=== PATIENT | male | born 1950 | race Caucasian/White ===

== ENCOUNTER → 2018-01-30 16:43 | Outpatient (CLI) | payer OTHER, SELFPAY ==
--- NOTE | 2018-01-30 | DI.RAD.S_ITS ---
PROCEDURE: XR LUMBAR SPINE 2-3V INDICATIONS: LOW BACK PAIN TECHNIQUE: 3 views of the lumbar spine were acquired. COMPARISON: [facility], , L-SPINE 2-3 VIEWS, 12/12/2006, 10:54. FINDINGS: Bones: 5 [id number] vertebrae are present. There is normal bony alignment. No vertebral body compression fractures. No suspicious bony lesions. Moderate degenerative osteoarthrosis present involving the discs along the lumbosacral spine most pronounced at L5-S1. Additionally, there is mild facet osteoarthritis except at L5-S1 where moderate such degeneration can be seen. Soft tissues: Overlying bowel gas pattern is normal. No suspicious soft tissue calcifications. IMPRESSION: The degenerative disc disease and facet osteoarthritis has worsened from the comparison study of December 2006 with worsening disc height reduction at L5-S1 and associated increased facet hyperostosis at that level. Spinal and foraminal stenosis likely is present as a result, no acute trauma. Dictated by: Roberto Carlos Naidu M.D. on 01/30/2018 at 17:13 Approved by: Roberto Carlos Naidu M.D. on 01/30/2018 at 17:15
== END ==
PROVIDERS: PCP Family Medicine; Visit Provider Family Medicine
DX: M51.36 Other intervertebral disc degeneration, lumbar region (principal); M47.816 Spondylosis without myelopathy or radiculopathy, lumbar region
CPT/HCPCS: 72100

== ENCOUNTER → 2018-02-22 08:36 | Outpatient (CLI) | payer OTHER, SELFPAY ==
--- NOTE | 2018-02-22 | DI.US.S_ITS ---
PROCEDURE: US RETROPERITONEAL COMP INDICATIONS: ABDOMINAL AORTIC ANEURYSM SCREENING TECHNIQUE: Real-time scanning was performed of the retroperitoneal organs, with image documentation. COMPARISON: None. FINDINGS: Aorta: Visualized aorta is normal in caliber at 3 cm or less. Iliac arteries: Proximal common iliac arteries are normal in caliber at 2.5 cm or less. IMPRESSION: No abdominal aortic or proximal common iliac artery aneurysm. Dictated by: Amor AVENDANO Interpreted: Maria M Ruiz MD on 02/22/2018 at 9:40 Approved by: Maria M Ruiz M.D. on 02/22/2018 at 10:30
== END ==
PROVIDERS: PCP Family Medicine; Visit Provider Family Medicine
DX: Z13.6 Encounter for screening for cardiovascular disorders (principal)
CPT/HCPCS: 76770

== ENCOUNTER → 2018-12-27 10:45 | Outpatient (CLI) | payer OTHER, SELFPAY | PROVIDERS: PCP Family Medicine; Visit Provider Family Medicine | DX: R20.0 Anesthesia of skin (principal) | CPT/HCPCS: 95885; 95886; 95911 ==

== ENCOUNTER → 2022-12-07 07:59 | Outpatient (CLI) | payer OTHER, SELFPAY ==
--- NOTE | 2022-12-07 | DI.ECHO.S_ITS ---
[facility] +---------+ : : [address] : [address] : : : : [id number] : : : : Phone: [phone]+ Echocardiogram Report + + :Name: JUSTINO SHELL Study Date: 12/07/2022 Height: 69 in : :[facility] ReadingLocation: Weight: 210 lb : : Gender: Male BSA: 2.1 m2 : :: 1950 Age: 72 yrs BP: 110/64 mmHg: :Reason For Study: ATRIAL FIBRILLATION : :Ordering Physician: EDIN, : :DONTRELL Performed By: Gilda Robbins : :Referring: DONTRELL JESUS : + + Interpretation Summary The ejection fraction is estimated to be 50-55%. Diastolic function could not be accurately assessed due to atrial fibrillation. The right ventricle is normal in size and function. There is moderate biatrial enlargement. There is moderate to severe mitral regurgitation. There is moderate tricuspid regurgitation. The right ventricular systolic pressure is estimated to be at least 29 mmHg based on an estimated right atrial pressure of 3 mm Hg. Procedure: A two-dimensional transthoracic echocardiogram with color flow and Doppler was performed. The study quality was technically adequate. There is no prior echocardiogram noted for this patient. The patient was in atrial fibrillation with heart rates between 85-125 bpm during the exam. Left Ventricle: The left ventricle is normal in size and wall thickness. The ejection fraction is estimated to be 50-55%. Diastolic function could not be accurately assessed due to atrial fibrillation. Right Ventricle: The right ventricle is normal in size and function. Atria: There is moderate biatrial enlargement. There is no Doppler evidence for an interatrial shunt. Mitral Valve: The mitral valve leaflets appear mildly thickened, but open well. There is moderate to severe mitral regurgitation. Aortic Valve: The aortic valve is trileaflet. The aortic valve opens well. The aortic valve is mildly calcified. There is no aortic valve stenosis. No aortic regurgitation is present. Tricuspid Valve: The tricuspid valve leaflets are thickened and/or calcified, but open well. There is moderate tricuspid regurgitation. The right ventricular systolic pressure is estimated to be at least 29 mmHg based on an estimated right atrial pressure of 3 mm Hg. Pulmonic Valve: The pulmonic valve leaflets are thin and pliable; valve motion is normal. There is trace pulmonic regurgitation. Great Vessels: The aortic root is normal size. The dimensions of the ascending aorta are normal. The IVC is of normal diameter and collapses greater than 50% with a sniff. This suggests a low right atrial pressure of 3 mm Hg. Pericardium/ Pleura There is no pericardial effusion. There is no pleural effusion. MMode/2D Measurements & Calculations LVIDd: 4.5 cm LVOT diam: 2.2 cm LVIDs: 3.1 cm Ao root diam: 3.2 cm FS: 30.1 % asc Aorta Diam: 2.9 cm IVSd: 0.89 cm Ao Arch Diam (Prox Trans): 2.6 cm LVPWd: 0.86 cm LV mooney. diameter/BSA (cm/m^2): 2.1 LV sys. diameter/BSA (cm/m^2): 1.5 LA A2 area: 28.8 cm2 RA long axis: 7.0 cm LA A4 area: 29.6 cm2 RA area: 26.6 cm2 LA length (vol): 7.3 cm RA vol: 85.8 ml LA vol: 99.1 ml RA : 40.7 ml/m2 LA vol index: 47.0 ml/m2 IVC diam: 1.8 cm RVD1 (basal): 3.9 cm RVD2 (mid): 2.8 cm TAPSE: 2.0 cm Doppler Measurements & Calculations Ao V2 max: 183.9 cm/sec LVOT Max Randy: 116.5 cm/sec Ao V2 mean: 126.5 cm/sec LV V1 max P.4 mmHg Ao max P.5 mmHg LV V1 VTI: 20.0 cm Ao mean P.2 mmHg MARIAH(I,D): 2.2 cm2 Ao V2 VTI: 33.0 cm MARIAH(V,D): 2.3 cm2 sev ratio: 0.61 MARIAH indexed to BSA (cm^2/m^2): 1.1 MV E max randy: 106.6 cm/sec TR max randy: 242.2 cm/sec MV A max randy: 2.1 cm/sec TR max P.5 mmHg MV E/A: 51.2 PA V2 max: 96.1 cm/sec Med Peak E' Randy: 9.8 cm/sec PA V2 mean: 72.3 cm/sec E/E' med: 10.9 PA mean P.3 mmHg Lat Peak E' Randy: 11.3 cm/sec PA pr(Accel): 48.2 mmHg E/E' lat: 9.4 E/e' average: 10.1 MV dec time: 0.17 sec MR ERO: 0.19 cm2 MR PISA: 2.3 cm2 SV(LVOT): 73.1 ml MR flow rate: 95.7 cm3/sec MR PISA radius: 0.61 cm Reading Physician:10:51 AM
== END ==
PROVIDERS: PCP Family Medicine; Referring Provider Family Medicine; Visit Provider Family Medicine
DX: I48.91 Unspecified atrial fibrillation (principal); R55 Syncope and collapse; R06.02 Shortness of breath; I08.1 Rheumatic disorders of both mitral and tricuspid valves
CPT/HCPCS: 93306

== ENCOUNTER → 2024-07-25 15:58 | Outpatient (CLI) | payer OTHER, SELFPAY ==
[2024-07-25 17:00] LABS: Add Manual Diff / Slide Review NO; Basophils Absolute Auto 100 /uL (0-100); Basophils Percent Auto 0.9 % (0-2); Eosinophils Absolute Auto 200 /uL (0-450); Eosinophils Percent Auto 2.6 % (2-4); Hematocrit 45.3 % (41-53); Hemoglobin 14.9 g/dL (13.5-17.5); Lymphocytes Absolute Auto 2000 /uL (1100-4500); Lymphocytes Percent Auto 26.8 % (25-40); Mean Corpuscular HGB Conc 32.9 % (30-36); Mean Corpuscular Hemoglobin 28.3 PG (26-34); Mean Corpuscular Volume 86.2 fL (80-100); Monocytes Absolute Auto 600 /uL (0-900); Monocytes Percent Auto 8.4 % (3-14); Neutrophils Absolute Auto 4600 /uL (1500-7000); Neutrophils Percent Auto 61.3 % (50-75); Platelet Count 186 X10^3/uL (150-400); Red Blood Cell Count 5.26 X10^6/uL (4.5-5.9); Red Cell Distribution Width 14.3 % (11.6-14.8); White Blood Cell Count 7.5 X10^3/uL (4.5-11.0)
[2024-07-25 17:01] LABS: Alanine Aminotransferase 32 IU/L (<50); Albumin 4.5 g/dL (3.5-5.0); Albumin Globulin Ratio 1.5 (1.0-2.8); Alkaline Phosphatase 99 U/L (38-126); Aspartate Aminotransferase 26 IU/L (17-59); BUN Creatinine Ratio 31.6 (6-22); Bilirubin Total 0.8 mg/dL (0.2-1.3); Blood Urea Nitrogen 24 mg/dL (9-20); Calcium 9.4 mg/dL (8.4-10.2); Carbon Dioxide 24 mmol/L (22-32); Chloride 105 mmol/L (98-107); Cholesterol 129 mg/dL (140-199); Estimated Glomerular Filt Rate > 60 mL/min (>60); Globulin 3.1 g/dL (1.7-4.1); Glucose 104 mg/dL (80-110); HDL Cholesterol 35 mg/dL (40-60); HEMOLYSIS < 15 (0-50); LDL Cholesterol Calculated 81 mg/dL (<100); Potassium 3.9 mmol/L (3.4-5.1); Sodium 139 mmol/L (137-145); Total Protein 7.6 g/dL (6.3-8.2); Triglycerides 65 mg/dL (35-150)
[2024-07-25 17:32] LABS: Prostate Specific Antigen 0.766 ng/mL (0.10-4.00)
== END ==
LOC: LAB 16:01
PROVIDERS: PCP Family Medicine; Referring Provider Family Medicine; Visit Provider Family Medicine
DX: I10 Essential (primary) hypertension (principal); I48.0 Paroxysmal atrial fibrillation; I34.0 Nonrheumatic mitral (valve) insufficiency; E78.2 Mixed hyperlipidemia; R73.9 Hyperglycemia, unspecified; N40.1 Benign prostatic hyperplasia with lower urinary tract symptoms; N13.8 Other obstructive and reflux uropathy
CPT/HCPCS: 36415; 80053; 80061; 83036; 84153; 84443; 85025